=== PATIENT | male | born 1960 | race Caucasian/White ===

== ENCOUNTER 2021-03-15 06:05 | Emergency (ER) | payer MEDICAID ==
[~2021-03-15] VITALS: Ht 180.3 cm; Wt 59.0 kg
[2021-03-15 06:05] VITALS: BP 108/69
--- NOTE | 2021-03-15 06:05 | NUR ---
0603- PT [place] [facility] TO CHAIR C
[2021-03-15 06:24] VITALS: BP 108/69
--- NOTE | 2021-03-15 06:25 | NUR ---
PATIENT BIB [employer]. PATIENT EXAMINED BY DR. CAMPBELL. PATIENT MEDICALLY CLEARED AND RELEASED IN CUSTODY IN STABLE CONDITION. ORIGINAL PRE-BOOK FORM GIVEN TO OFFICER ZAYDA.
== END 2021-03-15 06:25 ==
LOC: MED 06:05
DX: F29 Unspecified psychosis not due to a substance or known physiological condition (principal); Z02.89 Encounter for other administrative examinations; Z88.0 Allergy status to penicillin
CPT/HCPCS: 99283